=== PATIENT | male | born 1945 | race Caucasian/White ===

== ENCOUNTER → 2018-04-07 | Outpatient (CLI) | payer OTHER | LOC: FIMAGING 09:11 | PROVIDERS: ATTEND Internal Medicine | DX: J40 Bronchitis, not specified as acute or chronic (principal); I10 Essential (primary) hypertension; N40.1 Benign prostatic hyperplasia with lower urinary tract symptoms; Z85.47 Personal history of malignant neoplasm of testis ==

== ENCOUNTER → 2018-06-19 | Outpatient (CLI) | payer OTHER | LOC: BMCIMAGING 11:23 | PROVIDERS: ATTEND Emergency Medicine | DX: S79.912A Unspecified injury of left hip, initial encounter (principal); N50.89 Other specified disorders of the male genital organs ==